=== PATIENT | female | born 1930 ===

== ENCOUNTER 2017-05-15 09:18 | Outpatient (CLI) | payer MEDICARE, BC ==
--- NOTE | 2017-05-15 10:31 | Ultrasound Report ---
ULTRASOUND NECK: 05/15/17 CLINICAL: Right parotid mass. FINDINGS: Ultrasound of the right neck demonstrated a solid oval hypoechoic mass associated with the right parotid gland area measures 2.2 x 1.3 x 1.3 cm. Margins are irregular. IMPRESSION: A solid 2.2 cm right parotid mass. Consider CT neck without and with contrast for further evaluation.
== END 2017-05-15 09:19 | disposition home or self-care (01) ==
LOC: SPVWC 09:18
DX: K11.8 Other diseases of salivary glands (principal)
CPT/HCPCS: 76536